=== PATIENT | male | born 1955 | race Asian ===

== ENCOUNTER 2021-02-08 05:28 | Day surgery (SDC) | payer OTHER ==
[2021-02-06 17:36] VITALS: BMI 24.0
[2021-02-08] MEDS ORDERED: LIDOCAINE 1%/EPI 1:100000 (50 ML MULTI DOSE VIAL) ONE ×2 (09:12→10:29)
[2021-02-08] MEDS ORDERED: BUPIVACAINE HCL 150 ML ONE (09:12)
[2021-02-08] MEDS ORDERED: PROPOFOL 20 ML ONE ×2 (09:22→11:06)
[2021-02-08] MEDS ORDERED: MIDAZOLAM HCL 2 MG/2 ML SINGLE DOSE VIAL ONE (09:23)
[2021-02-08] MEDS ORDERED: LIDOCAINE HCL/PF 2% SDV 5ML VIAL ONE (09:31)
[2021-02-08] MEDS ORDERED: ceFAZolin SODIUM 1 GM VIAL ONE (09:50)
[2021-02-08] MEDS ORDERED: DEXAMETHASONE SOD PHOSPHATE 4 MG/1 ML VIAL ONE ×2 (09:50→11:15)
[2021-02-08] MEDS ORDERED: LIDOCAINE 1%/EPI 1:100000 (20 ML MULTI DOSE VIAL) IJ ONE (10:08)
[2021-02-08] MEDS ORDERED: BUPIVACAINE HCL/PF 0.5% (5MG/ML) 10 ML VIAL IJ ONE ×2 (10:08)
[2021-02-08] MEDS ORDERED: KETOROLAC TROMETHAMINE 30 MG/1 ML VIAL ONE (10:59)
[2021-02-08] MEDS ORDERED: LACTATED RINGERS SOLUTION 1,000 ML IV SCH (11:45)
[2021-02-08] MEDS ORDERED: oxyCODONE HCL 5 MG TABLET PO PRN ×2 (11:45)
[2021-02-08] MEDS ORDERED: ONDANSETRON 4 MG/2 ML VIAL IVPUSH PRN (11:45)
[2021-02-08 13:36] VITALS: PULSE 77; TEMP 97.9
[2021-02-08 13:52] VITALS: BP 160/73
== END 2021-02-08 14:30 | disposition home or self-care (01) ==
LOC: JASU-SURG 05:28
PROVIDERS: ATTEND Surgery
PROC: 0YU60JZ Supplement Left Inguinal Region with Synthetic Substitute, Open Approach (ICD-10-PCS; principal; 2021-02-08 09:30)
DX: K40.90 Unilateral inguinal hernia, without obstruction or gangrene, not specified as recurrent (principal)
CPT/HCPCS: 88302-TC; 94760